=== PATIENT | male | born 1945 | race Caucasian/White ===

== ENCOUNTER 2021-06-01 10:20 | Inpatient (IN) ==
[2021-06-01] MEDS ORDERED: SODIUM CHLORIDE 0.9% 1,000 ML IV STA (11:52)
[2021-06-01 12:07] LABS: Basophils # 0.1 10*3/uL (0.0-0.2); Basophils % 0.5 % (0.0-0.8); Eosinophils # 0.1 10*3/uL (0.0-0.87); Eosinophils % 1.5 % (0.00-10.9); Hemoglobin 11.2 GM/DL (14.0-18.0); Immature Granulocytes % 0.3 %; Immature Granulocytes Absolute 0.03 #; Lymphocytes # 0.4 10*3/uL (1.4-4.0); Lymphocytes % 3.8 % (21.2-54.2); Mean Corpuscular Volume 85.8 FL (87-102); Mean Platelet Volume 9.9 FL (9.6-12.0); Monocytes % 13.2 % (1.7-12.7); Neutrophils % 80.7 % (38.7-73.9); Platelet Count 279 T/CUMM (130-400); Red Blood Count 4.08 MC/CUMM (3.8-5.5); Red Cell Distribution Width 16.7 % (9.3-17.3); White Blood Count 9.3 T/CUMM (4-12)
[2021-06-01 12:24] LABS: Alanine Aminotransferase < 6 U/L (16-61); Albumin 2.9 G/DL (3.4-5.0); Alkaline Phosphatase 119 U/L (45-117); Aspartate Amino Transferase 11 U/L (0-37); Blood Urea Nitrogen 31 MG/DL (7-18); Carbon Dioxide 24 MMOL/L (21-32); Estimated Glom Filtration Rate 67 ML/MIN; Glucose 203 MG/DL (74-106); Osmolality,Calculated 278.4 MOS/KG (273-304); Potassium 5.1 MMOL/L (3.5-5.1); Sodium 133 MMOL/L (136-145); Total Protein 6.9 G/DL (6.4-8.2)
[2021-06-01 12:32] LABS: INR 1.1; PT Patient Result 12.4 SECS (10.5-12.0)
[2021-06-01 12:38] LABS: Band Neutrophils 8 % (0-10); Lymphocytes 5 % (20-55); Segmented Neutrophils 76 % (50-85); Total Cells Counted 100
[2021-06-01 12:40] LABS: Ovalocytes Slight
[2021-06-01 12:41] LABS: Platelet Estimate Normal
[2021-06-01 12:46] LABS: Partial Thromboplastin Time 25.5 SECS (23.8-32.1)
[2021-06-01 12:52] LABS: Bilirubin,Urine Negative (Negative); Blood, Urine Negative (Negative); Glucose,Urine (UA) Negative (Negative); Hyaline Casts,Urine 18 /LPF (0-3); Ketones,Urine 5 mg/dL (Negative); Mucus,Urine Few /LPF (Occasional); Nitrite,Urine Negative (Negative); Protein,Urine 30 MG/DL; RBC,Urine 1 /HPF (0-4); Urine Appearance Slightly Hazy (Clear); Urine Color Amber (Yellow); Urine Specific Gravity 1.025 (1.001-1.035); Urine Urobilinogen < 2.0 EU/DL (<2.0)
[2021-06-01 13:32] LABS: Barbiturates Screen,Urine Negative (Negative); Benzodiazepines Screen,Urine Positive (Negative); Cannabinoid Screen,Urine Negative (Negative); Opiate Screen,Urine Negative (Negative); Phencyclidine Screen,Urine Negative (Negative)
[2021-06-01] MEDS ORDERED: ONDANSETRON 4 MG/2 ML VIAL IV PRN (14:20)
[2021-06-01] MEDS ORDERED: GLUCAGON 1 MG VIAL IM PRN (14:20)
[2021-06-01] MEDS ORDERED: ACETAMINOPHEN 325 MG TABLET PO PRN (14:20)
[2021-06-01] MEDS ORDERED: BISACODYL 5 MG TABLET PO PRN (14:20)
[2021-06-01] MEDS ORDERED: DEXTROSE 10% 25 GM/250 ML BAG IV PRN (14:25)
[2021-06-01] MEDS ORDERED: ENOXAPARIN 40 MG/0.4 ML SYRINGE SUBCUT SCH (15:00)
[2021-06-01] MEDS: SODIUM CHLORIDE 0.9% 1,000 ML IV SCH (16:10)
[2021-06-01] MEDS: CARBIDOPA/LEVODOPA 25-100 MG TABLET PO SCH ×2 (17:17→20:58)
[2021-06-01] MEDS: INSULIN LISPRO 100 UNIT/ML SUBCUT SCH ×2 (17:17→20:58)
[2021-06-01] MEDS ORDERED: CARBIDOPA LEVODOPA PO SCH (18:00)
[2021-06-01] MEDS: TAMSULOSIN 0.4 MG CAPSULE PO SCH (20:58)
[2021-06-01] MEDS ORDERED: ROSUVASTATIN 20 MG TABLET PO SCH (21:00)
[2021-06-02] MEDS: SODIUM CHLORIDE 0.9% 1,000 ML IV SCH ×2 (01:34→12:37)
[2021-06-02] MEDS: INSULIN LISPRO 100 UNIT/ML SUBCUT SCH ×4 (08:55→21:12)
[2021-06-02] MEDS: ASPIRIN EC 81 MG TABLET PO SCH (08:59)
[2021-06-02] MEDS: CARBIDOPA/LEVODOPA 25-100 MG TABLET PO SCH ×4 (09:00→21:11)
[2021-06-02] MEDS ORDERED: APIXABAN 5 MG TABLET PO SCH (09:30)
[2021-06-02] MEDS: APIXABAN 5 MG TABLET PO SCH ×2 (10:31→21:11)
[2021-06-02] MEDS: SERTRALINE 25 MG TABLET PO SCH (10:32)
[2021-06-02] MEDS ORDERED: ROSUVASTATIN 20 MG TABLET PO SCH (21:00)
[2021-06-02] MEDS: TAMSULOSIN 0.4 MG CAPSULE PO SCH (21:11)
[2021-06-03 05:39] LABS: Basophils # 0.1 10*3/uL (0.0-0.2); Basophils % 0.9 % (0.0-0.8); Eosinophils # 0.5 10*3/uL (0.0-0.87); Eosinophils % 7.8 % (0.00-10.9); Hemoglobin 9.6 GM/DL (14.0-18.0); Immature Granulocytes % 0.3 %; Immature Granulocytes Absolute 0.02 #; Lymphocytes # 0.9 10*3/uL (1.4-4.0); Lymphocytes % 15.3 % (21.2-54.2); Mean Corpuscular Volume 88.8 FL (87-102); Mean Platelet Volume 10.6 FL (9.6-12.0); Monocytes % 10.3 % (1.7-12.7); Neutrophils % 65.4 % (38.7-73.9); Platelet Count 231 T/CUMM (130-400); Red Blood Count 3.49 MC/CUMM (3.8-5.5); Red Cell Distribution Width 16.9 % (9.3-17.3); White Blood Count 5.8 T/CUMM (4-12)
[2021-06-03 06:04] LABS: Calcium 8.6 MG/DL (8.5-10.1); Osmolality,Calculated 280.4 MOS/KG (273-304); Potassium 3.5 MMOL/L (3.5-5.1); Risk Ratio 2.34; VLDL Cholesterol 15.2 MG/DL
[2021-06-03] MEDS: INSULIN LISPRO 100 UNIT/ML SUBCUT SCH ×3 (08:35→17:15)
[2021-06-03] MEDS: SODIUM CHLORIDE 0.9% 1,000 ML IV SCH ×2 (08:36→13:02)
[2021-06-03] MEDS: CARBIDOPA/LEVODOPA 25-100 MG TABLET PO SCH ×3 (09:35→17:17)
[2021-06-03] MEDS: SERTRALINE 25 MG TABLET PO SCH (09:35)
[2021-06-03] MEDS: ASPIRIN EC 81 MG TABLET PO SCH (09:35)
[2021-06-03] MEDS: APIXABAN 5 MG TABLET PO SCH (09:35)
[2021-06-03 17:12] VITALS: BP 138/57
== END 2021-06-03 17:46 | disposition home or self-care (01) | DRG 64 ==
LOC: N.ED 10:20 → N.EDINP 10:20 → SUATTDRO 14:20 → OBSVTOIN 14:20 → N.TELEN 15:35 → SUATTDRO 06-02 07:07
PROVIDERS: ADMIT Internal Medicine; ATTEND Emergency Medicine